=== PATIENT | female | born 1955 | race Caucasian/White ===

== ENCOUNTER 2018-08-20 16:15 | Outpatient (RCR) | payer BC ==
[2018-05-27 16:30] VITALS: BP 123/69
[2018-06-28 11:22] VITALS: BP 123/65
[2018-07-26 14:50] VITALS: BP 115/66
[~2018-08-20] VITALS: Ht 170.2 cm; Wt 111.4 kg
[~2018-08-20 16:15] MED LIST: ADULT ASPIRIN81 MG PO; ALBUTEROL2.5 MG/3 M IH; BUSPAR 15MG TAB15 MG PO; CALCIUM 600600 M2 PO; DAPSONE100 M1 PO; DESYREL50 MG PO; DOXYCYCLINE MO100 M1 PO; ESCITALOPRAM10 MG PO; GOOD NEIGHBOR P10 M5 PO; HYDROXYZINE HCL25 M1 PO; NITRO-DUR1 EACH TD; NORVASC 5MG5 MG/TAB PO; OMEPRAZOLE D/R20 MG PO; OXYBUTYNIN CHLO10 MG PO; SUPHEDRIN30 MG PO; VITAMIN C PURE500 M1 PO; [UNRECOGNIZED DRUG - OTHER] PO; [UNRECOGNIZED DRUG - OTHER] PO
== END 2018-08-25 | disposition home or self-care (01) ==
LOC: AMSURD
DX: F10.20 Alcohol dependence, uncomplicated (principal)
CPT/HCPCS: J2315

== ENCOUNTER 2018-11-18 13:07 | Outpatient (RCR) | payer BC ==
[2018-09-20 13:24] VITALS: BP 113/59
[2018-10-18 13:25] VITALS: BP 124/64
[~2018-11-18] VITALS: Ht 170.2 cm; Wt 104.5 kg
[~2018-11-18 13:07] MED LIST changes: +DAPSONE25 M1 PO
[2018-11-18 13:15] VITALS: BP 150/67
== END 2018-11-18 13:56 | disposition home or self-care (01) ==
LOC: AMSURD 13:07
DX: Z01.89 Encounter for other specified special examinations (principal)
CPT/HCPCS: J2315